=== PATIENT | male | born 1970 | race Caucasian/White ===

== ENCOUNTER 2018-11-18 09:50 | Emergency (ER) | payer OTHER, SELFPAY ==
[2018-11-18 09:58] VITALS: BP 130/69; PULSE 70; RESP 16; TEMP 36.6; O2SAT 98
--- NOTE | 2018-11-18 10:01 | ED_ITS ---
HPI - General Adult General Chief complaint: Syncope Stated complaint: n/v/d@ home, near syncope @ market Time Seen by Provider: 11/18/18 09:51 Source: patient Mode of arrival: EMS Limitations: no limitations History of Present Illness HPI narrative: Patient is a 48-year-old male brought in by EMS after he had a presyncope/syncopal episode at the grocery store here in town. Patient states that about 0500 hours this morning he woke up having multiple episodes of diarrhea. Also having vomiting. He states that he went to the grocery store in order to buy some fluids and Pepto-Bismol. He states that when he was standing at the checkout counter he became very warm and lightheaded. He states that he could hear things that were going on. He has did state that he has vision went black. The next thing that he remembers he was lying on the ground and people were standing over him asking if he was okay. Denies any chest pain or shortness of breath or heart beating fast or headaches prior to falling. He s tates he has had 1 prior episode similar to this many years ago and was told that it was ?vasovagal ? Related Data Previous Rx's Medication Instructions Recorded albuterol sulfate [Ventolin HFA] 0 INH SEE INSTRUCTIONS #1 unit 06/22/16 sildenafil 100 mg tablet 100 mg PO ONCE #4 tab 07/19/17 ondansetron 4 mg PO Q6H PRN #10 tab 11/18/18 Allergies Allergy/AdvReac Type Severity Reaction Status Date / Time HAYFEVER Allergy Intermediate VERIFIED Uncoded 05/18/17 12:08 Review of Systems Constitutional Constitutional: Reports fatigue, Denies fever(s) and Denies headache(s) ENT Ears, Nose, Mouth, and Throat: Reports dizziness, Denies headache(s) and Reports disequilibrium Cardiovascular Cardiovascular: Denies chest pain, Reports syncope and Denies dyspnea Respiratory Respiratory: Denies dyspnea Gastrointestinal Gastrointestinal: Reports abdominal pain, Reports diarrhea, Reports nausea and R eports vomiting Genitourinary Genitourinary: Denies dysuria Musculoskeletal Musculoskeletal: Denies myalgias and Denies arthralgias Integumentary/Breasts Skin/Breast: Denies lesions and Denies rash Neurologic Neurologic: Reports confusion, Reports dizziness, Reports syncope, Denies headache(s) and Reports disequilibrium Psychiatric Psychiatric: Reports confusion Endocrine Endocrine: Reports fatigue Hematologic/Lymphatic Hematologic/Lymphatic: Denies easy bleeding and Denies easy bruising Patient History Medical/Surgical History Medical History (Updated 11/18/18 @ 12:15 by Tano Delvalle DO) Patient denies medical problems (Acute) Social History Smoking Status: Current some day smoker Family/Social History Social History Smoking Status: Current some day smoker Exam Initial Vital Signs Initial Vital Signs: Vital Signs Temperature 97.8 F 11/18/18 09:58 Pulse Rate 70 11/18/18 09:58 Respiratory Rate 16 11/18/18 09:58 Blood Pressure 130/69 11/18/18 09:58 Pulse Oximetry 98 11/18/18 09:58 Const General: cooperative and comfortable Orientation: alert and awake HENMT Head: normal to inspection and normocephalic Resp Effort & Inspection: normal respiratory effort Auscultation: clear to auscultation bilaterally Cardio Rate: regular rate Rhythm: regular rhythm Skin Lesions: no lesions Rashes: no rashes Neuro General: alert, awake and oriented x3 Cranial Nerves: CN's II-XI intact bilaterally Cognition: normal cognition Speech: speech normal Motor: muscle tone normal throughout Sensory Exam: no sensory deficits noted Extrem General: normal to inspection and capillary refill normal Psych Appearance: grossly normal and well kempt Scores GCS Carmela coma scale eye opening: Spontaneous Carmela coma scale verbal response: Orientated Carmela coma scale motor response: [place]bey commands [place] coma scale total score: 15 Course Orders Ordered: ED Orders 11/18/18 09:54 EKG-12 Lead Stat 11/18/18 10:09 Complete Blood Count AUTO DIFF Stat Comprehensive Metabolic Panel Stat Lipase Stat Troponin I Stat Discontinued Medications Sodium Chloride (Normal Saline 0.9%) 1,000 mls @ 1,000 mls/hr IV BOLUS ONE Stop: 11/18/18 10:50 Last Infusion: 11/18/18 11:40 Dose: 0 mls/hr Documented by: Admin: 11/18/18 10:15 Dose: 1,000 mls/hr Documented by: AKILAH Vital Signs Vital signs: Vital Signs - 8 hr 11/18/18 09:58 11/18/18 10:16 11/18/18 11:30 Temperature 97.8 F 98.3 F Pulse Rate 70 69 73 Respiratory Rate 16 16 15 Blood Pressure 130/69 Blood Pressure [Left Arm] 113/82 108/78 Pulse Oximetry 98 98 97 11/18/18 12:09 Temperature Pulse Rate 76 Respiratory Rate 12 Blood Pressure Blood Pressure [Left Arm] 130/77 Pulse Oximetry 97 Medical Decision Making Lab Data Lab results reviewed: Yes I reviewed the patient's lab results. Result diagrams: 11/18/18 10:09 11/18/18 10:09 Labs: Lab Results 11/18/18 11/18/18 Range/Units 10: 10:09 WBC 11.8 H (4.5-11.0) X10^3/uL RBC 5.85 (4.5-5.9) X10^6/uL Hgb 17.9 H (13.5-17.5) g/dL Hct 53.2 H (41-53) % MCV 90.9 (80-100) fL MCH 30.6 (26-34) PG MCHC 33.6 (30-36) % RDW 14.5 (11.6-14.8) % Plt Count 191 (150-400) X10^3/uL Neut % (Auto) 87.8 H (50-75) % Lymph % (Auto) 6.8 L (25-40) % [place] % (Auto) 4.1 (3-14) % Eos % (Auto) 1.2 L (2-4) % Baso % (Auto) 0.1 (0-2) % Neut # (Auto) 09549 H (6875-4432) /uL Lymph # (Auto) 800 L (9847-6301) /uL [place] # (Auto) 500 (0-900) /uL Eos # (Auto) 100 (0-450) /uL Baso # (Auto) 0 (0-100) /uL Sodium 144 (137-145) mmol/L Potassium 4.6 (3.4-5.1) mmol/L Chloride 107 (98-107) mmol/L Carbon Dioxide 21 L (22-32) mmol/L BUN 16 (9-20) mg/dL Creatinine 1.00 (0.66-1.25) mg/dL Estimated GFR > 60.0 (>60) mL/min BUN/Creatinine Ratio 16.0 (6-22) Glucose 114 H (70-100) mg/dL Calcium 9.8 (8.4-10.2) mg/dL Total Bilirubin 1.2 (0.2-1.3) mg/dL AST 24 (17-59) IU/L ALT 28 (21-72) IU/L Alkaline Phosphatase 61 (38-126) U/L Troponin I < 0.012 (0.01-0.034) ng/mL Total Protein 7.8 (6.3-8.2) g/dL Albumin 5.0 (3.5-5.0) g/dL Globulin 2.8 (1.7-4.1) g/dL Albumin/Globulin Ratio 1.8 (1.0-2.8) Lipase 40 (23-300) U/L Point of Care Testing Glucose POC 122 Point of care testing: Point of Care Testing Glucose POC 122 ECG Data Attestation: I personally reviewed and interpreted this ECG as follows: Prior ECG tracings: not available for review Interpretation: Sinus rhythm Ventricular rate is 67 Normal axis Normal QRS Normal QTC No ST T wave changes EKG transmitted by EMS shows sinus rhythm Heart rate is 70 Peak T-waves MDM Narrative Medical decision making narrative: Labs unremarkable. I do suspect the patient's symptoms were vasovagal most likely related to dehydration secondary to his GI issues this morning. He has been able to tolerate oral intake. Ambulated around the ER without problems. Will send home with a prescription for Zofran. He was given return precautions and follow-up instructions. He expressed understanding and agreement with plan. Discharge Plan Departure Patient Disposition: Home Clinical Impression: Vasovagal syncope, Dehydration Diarrhea Qualifiers: Diarrhea type: unspecified type Qualified Code(s): R19.7 - Diarrhea, unspecified Instructions: DI for Syncope in Adults (Fainting), Diarrhea Activity Restrictions/Additional Instructions: Recommend that you increase your fluid intake. Drink small amounts of water over long periods of time. Eat a bland diet. Contact your primary provider for follow-up. Return to the emergency department for any new or worsening symptoms Prescriptions: New ondansetron 4 mg tablet,disintegrating 4 mg PO Q6H PRN (Reason: nausea and vomiting) Qty: 10 RF: 0 No Action albuterol sulfate [Ventolin HFA] 90 MCG/PUFF HFA aerosol inhaler 0 INH SEE INSTRUCTIONS Qty: 1 RF: 5 sildenafil 100 mg tablet 100 mg PO ONCE Qty: 4 RF: 3 Referrals: Len Castellanos MD [Primary Care Provider] -
[2018-11-18] MEDS: SODIUM CHLORIDE 0.9% 1,000 ML 1000 ML IV (10:15)
[2018-11-18 10:16] VITALS: BP 113/82; PULSE 69; RESP 16; TEMP 36.8; O2SAT 98
[2018-11-18 10:19] LABS: Add Manual Diff / Slide Review NO; Basophils Absolute Auto 0 /uL (0-100); Basophils Percent Auto 0.1 % (0-2); Eosinophils Absolute Auto 100 /uL (0-450); Eosinophils Percent Auto 1.2 % (2-4); Hematocrit 53.2 % (41-53); Hemoglobin 17.9 g/dL (13.5-17.5); Lymphocytes Absolute Auto 800 /uL (1100-4500); Lymphocytes Percent Auto 6.8 % (25-40); Mean Corpuscular HGB Conc 33.6 % (30-36); Mean Corpuscular Hemoglobin 30.6 PG (26-34); Mean Corpuscular Volume 90.9 fL (80-100); Monocytes Absolute Auto 500 /uL (0-900); Monocytes Percent Auto 4.1 % (3-14); Neutrophils Absolute Auto 10400 /uL (1500-7000); Neutrophils Percent Auto 87.8 % (50-75); Platelet Count 191 X10^3/uL (150-400); Red Blood Cell Count 5.85 X10^6/uL (4.5-5.9); Red Cell Distribution Width 14.5 % (11.6-14.8); White Blood Cell Count 11.8 X10^3/uL (4.5-11.0)
--- NOTE | 2018-11-18 10:20 | PC.NURSE ---
Pt arrived via EMS with reports of syncope while in grocery store. pt with NVD at home and was at store buying fluids and OTC medication when he collapsed and had syncopal episode at counter, witnessed by employees, reports LOC for few seconds and feeling warm and flush and with tunnel vision. vomited on self. EMS arrived with 18G RAC with fluids infusing. EKG obtained NSR 70's, BP 110s/systolic. appears pale and reports intermittent lightheaded and dizziness. lungs clear. attached to cardiac monitoring. labs drawn and sent and fluids infusing per order. Dr Delvalle in to evaluate.
[2018-11-18 10:30] LABS: Albumin Globulin Ratio 1.8 (1.0-2.8); Alkaline Phosphatase 61 U/L (38-126); Aspartate Aminotransferase 24 IU/L (17-59); Bilirubin Total 1.2 mg/dL (0.2-1.3); Blood Urea Nitrogen 16 mg/dL (9-20); Calcium 9.8 mg/dL (8.4-10.2); Carbon Dioxide 21 mmol/L (22-32); Estimated Glomerular Filt Rate > 60.0 mL/min (>60); Globulin 2.8 g/dL (1.7-4.1); Glucose 114 mg/dL (70-100); HEMOLYSIS 25 (0-50); Total Protein 7.8 g/dL (6.3-8.2)
[2018-11-18 10:35] LABS: Alanine Aminotransferase 28 IU/L (21-72); Chloride 107 mmol/L (98-107); Lipase 40 U/L (23-300); Potassium 4.6 mmol/L (3.4-5.1); Sodium 144 mmol/L (137-145)
[2018-11-18 10:42] LABS: Troponin I < 0.012 ng/mL (0.01-0.034)
[2018-11-18 11:30] VITALS: BP 108/78; PULSE 73; RESP 15; O2SAT 97
--- NOTE | 2018-11-18 11:40 | PC.NURSE ---
Pt drowsy, fluids infused. pt reports feeling better. to PO challenge and plan to DC.
[2018-11-18 12:09] VITALS: BP 130/77; PULSE 76; RESP 12; O2SAT 97
== END 2018-11-18 12:25 | disposition home or self-care (01) ==
PROVIDERS: Emergency Provider Emergency Medicine; PCP Family Medicine
DX: R55 Syncope and collapse (principal); E86.0 Dehydration; R19.7 Diarrhea, unspecified
CPT/HCPCS: 36415; 80053; 83690; 84484; 85025; 93005; 96360; 99283; 99284

== ENCOUNTER 2018-11-21 06:32 | Emergency (ER) | payer OTHER, SELFPAY ==
--- NOTE | 2018-11-21 06:45 | DI.RAD.S_ITS ---
PROCEDURE: XR RIBS LT MIN 3V W CXR1V INDICATIONS: pain, fall 4 days ago TECHNIQUE: 3 views of the left ribs were acquired, along with a single view chest. COMPARISON: None. FINDINGS: Surgical changes and devices: None. Bones and chest wall: No fractures or dislocations. No suspicious bony lesions. Overlying soft tissues appear unremarkable. Lungs and pleura: No pleural effusions or pneumothorax. Lungs appear clear. Mediastinum: Mediastinal contours appear normal. Heart size is normal. IMPRESSION: No visualized acute fracture or dislocation. However, if clinical concern and/or pain persist, short interval imaging followup in 7-10 days is recommended, as occult injury cannot be definitively excluded. Dictated by: Justyna Simpson M.D. on 11/21/2018 at 8:21 Approved by: Justyna Simpson M.D. on 11/21/2018 at 8:22
[2018-11-21 06:46] VITALS: BP 133/92; PULSE 76; RESP 14; TEMP 36.9; O2SAT 99; BMI 23.7
--- NOTE | 2018-11-21 06:55 | ED.BACK ---
HPI - Back Pain/Injury General Chief Complaint: Back Pain/Injury Stated Complaint: severe left rib pain/fell x4days ago Time Seen by Provider: 11/21/18 06:45 Source: patient Mode of arrival: Ambulatory Limitations: no limitations History of Present Illness HPI Narrative: Patient is a 48-year-old male who I evaluated in the department several days ago after he had what I diagnosed as a vasovagal episode at a local grocery store. This was after he was having several episodes of diarrhea. Patient did admit that during his initial episode here he was not complaining of left-sided rib/back pain however since that event he has had pain on this side. He stated that it has worsened over the past couple days. Stated that last evening/this morning he rolled over in bed and heard/felt a loud pop and since then has had increasing pain on his left rib cage in the back. No problems breathing however it does hurt in the spot to take a deep breath. Related Data Previous Rx's Medication Instructions Recorded albuterol sulfate [Ventolin HFA] 0 INH SEE INSTRUCTIONS #1 unit 06/22/16 sildenafil 100 mg tablet 100 mg PO ONCE #4 tab 07/19/17 ondansetron 4 mg PO Q6H PRN #10 tab 11/18/18 Allergies Allergy/AdvReac Type Severity Reaction Status Date / Time HAYFEVER Allergy Intermediate VERIFIED Uncoded 05/18/17 12:08 Review of Systems Constitutional Constitutional: Denies fever(s) Cardiovascular Cardiovascular: Denies chest pain and Denies dyspnea on exertion Comments: Pain on inspiration Respiratory Respiratory: Denies cough, Reports pain on inspiration and Denies dyspnea on exertion Gastrointestinal Gastrointestinal: Denies abdominal pain, Denies nausea and Denies vomiting Musculoskeletal Musculoskeletal: Denies myalgias and Denies arthralgias Integumentary/Breasts Skin/Breast: Denies rash Neurologic Neurologic: Denies behavioral changes Psychiatric Psychiatric: Denies behavioral changes Hematologic/Lymphatic Hematologic/Lymphatic: Denies easy bleeding and Denies easy bruising Patient History Medical History Medical History Patient denies medical problems (Acute) Social History Social History Smoking Status: Current some day smoker tobacco type: cigarettes alcohol intake frequency: 0-2 drinks per day Substance Use Type: does not use Exam Initial Vital Signs Initial Vital Signs: Vital Signs Temperature 98.4 F 11/21/18 06:46 Pulse Rate 76 11/21/18 06:46 Respiratory Rate 14 11/21/18 06:46 Blood Pressure 133/92 H 11/21/18 06:46 Pulse Oximetry 99 11/21/18 06:46 Const General: cooperative, well developed and well groomed Orientation: alert, awake and oriented x3 Chest Chest: No crepitus and No tenderness Resp Effort & Inspection: normal respiratory effort Auscultation: clear to auscultation bilaterally Cardio Rate: regular rate Rhythm: regular rhythm Back/Spine/Pelvis Other: Patient with tenderness to palpation posteriorly paraspinal on the left along approximately rib 7/8. No crepitus felt. Skin Lesions: no lesions Rashes: no rashes Neuro General: alert and awake Cognition: normal cognition Speech: speech normal Extrem General: normal to inspection and capillary refill normal Psych Appearance: grossly normal and well kempt Course Orders Ordered: ED Orders 11/21/18 06:45 XR ribs LT min 3V w CXR1V Stat Discontinued Medications Ketorolac Tromethamine (Toradol) 30 mg IM NOW ONE Stop: 11/21/18 06:52 Last Admin: 11/21/18 07:19 Dose: 30 mg Documented by: AKILAH Vital Signs Vital signs: Vital Signs - 8 hr 11/21/18 06:46 Temperature 98.4 F Pulse Rate 76 Respiratory Rate 14 Blood Pressure 133/92 H Pulse Oximetry 99 MDM - Back Pain/Injury Imaging Data Rib x-ray: Attestation: I personally reviewed and interpreted this imaging study as follows: My impression: No fractures, no dislocations, no acute pathology in the lungs [facility] Narrative Medical decision making narrative: Patient is not in any respiratory distress. His lungs are clear. He does have reproducible tenderness to palpation along the posterior lower ribs. There is no crepitus along this area. There is no changes in the skin. I do suspect that this is either a nondisplaced rib fracture verses a bruise rib verses a intercostal muscle spasm. I did discuss this with the patient. We did discuss the importance of taking deep breaths. We did discuss the importance of pain control. He states he will stick with ibuprofen. We will hold on further workup for now. Patient was given return precautions and follow-up instructions. He expressed understanding and agreement with plan. Discharge Plan Departure Patient Disposition: Home Clinical Impression: Rib injury Instructions: DI for Rib Contusion Activity Restrictions/Additional Instructions: There was no defined fracture on the x-ray today. Your lungs were also unremarkable on the x-ray. Remember that it is important that you continue to take deep breaths. Take ibuprofen/Tylenol for discomfort. Return to the emergency department for any new or worsening symptoms Prescriptions: No Action albuterol sulfate [Ventolin HFA] 90 MCG/PUFF HFA aerosol inhaler 0 INH SEE INSTRUCTIONS Qty: 1 RF: 5 sildenafil 100 mg tablet 100 mg PO ONCE Qty: 4 RF: 3 ondansetron 4 mg tablet,disintegrating 4 mg PO Q6H PRN (Reason: nausea and vomiting) Qty: 10 RF: 0 Referrals: Len Castellanos MD [Primary Care Provider] -
[2018-11-21] MEDS: KETOROLAC 60 MG/2 ML VIAL 30 MG IM (07:19)
[2018-11-21 07:56] VITALS: BP 128/78; PULSE 77; RESP 16; O2SAT 97
== END 2018-11-21 07:57 | disposition home or self-care (01) ==
PROVIDERS: Emergency Provider Emergency Medicine; PCP Family Medicine
DX: R07.81 Pleurodynia (principal)
CPT/HCPCS: 71101; 96372; 99282; 99283; J1885

== ENCOUNTER → 2019-01-12 07:18 | Outpatient (CLI) | payer OTHER, SELFPAY ==
[2019-01-12 08:14] LABS: Add Manual Diff / Slide Review NO; Basophils Absolute Auto 0 /uL (0-100); Basophils Percent Auto 0.4 % (0-2); Eosinophils Absolute Auto 100 /uL (0-450); Eosinophils Percent Auto 2.5 % (2-4); Hematocrit 46.1 % (41-53); Hemoglobin 15.7 g/dL (13.5-17.5); Lymphocytes Absolute Auto 1900 /uL (1100-4500); Lymphocytes Percent Auto 31.6 % (25-40); Mean Corpuscular HGB Conc 34.1 % (30-36); Mean Corpuscular Hemoglobin 30.6 PG (26-34); Mean Corpuscular Volume 89.9 fL (80-100); Monocytes Absolute Auto 500 /uL (0-900); Monocytes Percent Auto 7.7 % (3-14); Neutrophils Absolute Auto 3400 /uL (1500-7000); Neutrophils Percent Auto 57.8 % (50-75); Platelet Count 193 X10^3/uL (150-400); Red Blood Cell Count 5.13 X10^6/uL (4.5-5.9); Red Cell Distribution Width 14.2 % (11.6-14.8); White Blood Cell Count 5.9 X10^3/uL (4.5-11.0)
[2019-01-12 09:21] LABS: Alanine Aminotransferase 29 IU/L (<50); Albumin 4.4 g/dL (3.5-5.0); Albumin Globulin Ratio 1.8 (1.0-2.8); Alkaline Phosphatase 60 U/L (38-126); Aspartate Aminotransferase 21 IU/L (17-59); Bilirubin Total 0.7 mg/dL (0.2-1.3); Blood Urea Nitrogen 20 mg/dL (9-20); Calcium 9.5 mg/dL (8.4-10.2); Carbon Dioxide 28 mmol/L (22-32); Chloride 104 mmol/L (98-107); Cholesterol 151 mg/dL (140-199); Estimated Glomerular Filt Rate > 60.0 mL/min (>60); Globulin 2.4 g/dL (1.7-4.1); Glucose 96 mg/dL (70-100); HDL Cholesterol 37 mg/dL (40-60); HEMOLYSIS < 15 (0-50); LDL Cholesterol Calculated 89 mg/dL (<100); Potassium 4.3 mmol/L (3.4-5.1); Sodium 141 mmol/L (137-145); Total Protein 6.8 g/dL (6.3-8.2); Triglycerides 123 mg/dL (35-150)
== END ==
PROVIDERS: PCP Family Medicine; Visit Provider Family Medicine
DX: Z00.00 Encounter for general adult medical examination without abnormal findings (principal); Z13.220 Encounter for screening for lipoid disorders; Z13.6 Encounter for screening for cardiovascular disorders; Z12.5 Encounter for screening for malignant neoplasm of prostate
CPT/HCPCS: 36415; 80053; 80061; 85025; G0103

== ENCOUNTER → 2020-09-02 07:03 | Outpatient (CLI) | payer OTHER, SELFPAY ==
[2020-09-02 07:53] LABS: Add Manual Diff / Slide Review NO; Basophils Absolute Auto 0 /uL (0-100); Basophils Percent Auto 0.5 % (0-2); Eosinophils Absolute Auto 100 /uL (0-450); Eosinophils Percent Auto 2.4 % (2-4); Hematocrit 46.4 % (41-53); Hemoglobin 15.1 g/dL (13.5-17.5); Lymphocytes Absolute Auto 1900 /uL (1100-4500); Lymphocytes Percent Auto 30.3 % (25-40); Mean Corpuscular HGB Conc 32.6 % (30-36); Mean Corpuscular Hemoglobin 29.6 PG (26-34); Mean Corpuscular Volume 90.8 fL (80-100); Monocytes Absolute Auto 500 /uL (0-900); Monocytes Percent Auto 7.9 % (3-14); Neutrophils Absolute Auto 3600 /uL (1500-7000); Neutrophils Percent Auto 58.9 % (50-75); Platelet Count 201 X10^3/uL (150-400); Red Cell Distribution Width 15.3 % (11.6-14.8); White Blood Cell Count 6.1 X10^3/uL (4.5-11.0)
[2020-09-02 08:19] LABS: Alanine Aminotransferase 22 IU/L (<50); Albumin Globulin Ratio 1.6 (1.0-2.8); Alkaline Phosphatase 49 U/L (38-126); Aspartate Aminotransferase 19 IU/L (17-59); BUN Creatinine Ratio 19.1 (6-22); Bilirubin Total 0.6 mg/dL (0.2-1.3); Blood Urea Nitrogen 17 mg/dL (9-20); Calcium 8.9 mg/dL (8.4-10.2); Carbon Dioxide 27 mmol/L (22-32); Chloride 107 mmol/L (98-107); Cholesterol 143 mg/dL (140-199); Estimated Glomerular Filt Rate > 60.0 mL/min (>60); Globulin 2.5 g/dL (1.7-4.1); Glucose 99 mg/dL (70-100); HDL Cholesterol 41 mg/dL (40-60); HEMOLYSIS 16 (0-50); LDL Cholesterol Calculated 79 mg/dL (<100); Potassium 4.4 mmol/L (3.4-5.1); Sodium 140 mmol/L (137-145); Total Protein 6.5 g/dL (6.3-8.2); Triglycerides 113 mg/dL (35-150)
== END ==
PROVIDERS: PCP Internal Medicine; Referring Provider Internal Medicine; Visit Provider Internal Medicine
DX: F32.9 Major depressive disorder, single episode, unspecified (principal); G47.30 Sleep apnea, unspecified; J45.909 Unspecified asthma, uncomplicated; Z13.220 Encounter for screening for lipoid disorders
CPT/HCPCS: 36415; 80053; 80061; 85025

== ENCOUNTER 2022-08-11 17:07 | Emergency (ER) | payer OTHER, SELFPAY ==
[2022-08-11 17:15] VITALS: BP 144/81; PULSE 75; RESP 16; TEMP 36.7; O2SAT 97; BMI 24.3
[2022-08-11 18:49] VITALS: PULSE 64; O2SAT 97
[2022-08-11 18:51] VITALS: BP 126/84; PULSE 65; O2SAT 97
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
[2022-08-11] MEDS: PROPARACAINE 0.5% OPHTH SOL 1 DROPS EYE-BOTH (19:52)
[2022-08-11] MEDS: KETOROLAC 30 MG/ML VIAL 15 MG IV (19:52)
[2022-08-11] MEDS: FLUORESCEIN 1 MG STRIP EYE-BOTH (19:53)
[2022-08-11] MEDS: AMPICILLIN/SULBACTAM 3 GM 3 GM in SODIUM CHLORIDE 0.9% 100 ML IV (19:55)
[2022-08-11 20:01] LABS: Add Manual Diff / Slide Review NO; Basophils Absolute Auto 0 /uL (0-100); Basophils Percent Auto 0.5 % (0-2); Eosinophils Absolute Auto 200 /uL (0-450); Eosinophils Percent Auto 2.1 % (2-4); Hematocrit 42.9 % (41-53); Hemoglobin 14.7 g/dL (13.5-17.5); Lymphocytes Absolute Auto 2000 /uL (1100-4500); Lymphocytes Percent Auto 25.6 % (25-40); Mean Corpuscular HGB Conc 34.2 % (30-36); Mean Corpuscular Hemoglobin 30.6 PG (26-34); Mean Corpuscular Volume 89.4 fL (80-100); Monocytes Absolute Auto 600 /uL (0-900); Neutrophils Absolute Auto 4900 /uL (1500-7000); Neutrophils Percent Auto 63.8 % (50-75); Platelet Count 178 X10^3/uL (150-400); Red Cell Distribution Width 15.3 % (11.6-14.8); White Blood Cell Count 7.6 X10^3/uL (4.5-11.0)
[2022-08-11 20:03] LABS: Lactate (Lactic Acid) 0.7 mmol/L (0.7-2.1)
[2022-08-11 20:04] LABS: Alanine Aminotransferase 26 IU/L (<50); Albumin Globulin Ratio 1.3 (1.0-2.8); Alkaline Phosphatase 69 U/L (38-126); Aspartate Aminotransferase 23 IU/L (17-59); BUN Creatinine Ratio 15.3 (6-22); Bilirubin Total 0.6 mg/dL (0.2-1.3); Blood Urea Nitrogen 15 mg/dL (9-20); Calcium 8.6 mg/dL (8.4-10.2); Carbon Dioxide 26 mmol/L (22-32); Chloride 104 mmol/L (98-107); Estimated Glomerular Filt Rate > 60 mL/min (>60); Glucose 85 mg/dL (70-100); HEMOLYSIS 15 (0-50); Potassium 4.1 mmol/L (3.4-5.1); Sodium 137 mmol/L (137-145)
[2022-08-11 20:21] LABS: Procalcitonin 0.06 ng/mL (<0.5)
[2022-08-11] MEDS: ERYTHROMYCIN OPHTH 1 GM OINT 1 APPLIC EYE-BOTH (21:59)
[2022-08-11] MEDS: AMOXICILLIN/CLAV 875/125 MG 1 TAB PO (21:59)
[2022-08-11 22:08] VITALS: BP 126/74; PULSE 78; RESP 16; TEMP 36.6; O2SAT 98
== END 2022-08-11 22:09 | disposition home or self-care (01) ==
PROVIDERS: Emergency Provider Emergency Medicine; PCP Internal Medicine
DX: L03.213 Periorbital cellulitis (principal); H04.301 Unspecified dacryocystitis of right lacrimal passage
CPT/HCPCS: 36415; 80053; 83605; 84145; 85025; 96365; 96375; 99284; J0295; J1885

== ENCOUNTER → 2023-07-16 | Outpatient (CLI) | payer OTHER, SELFPAY ==
--- NOTE | 2023-07-16 | DI.RAD.S_ITS ---
PROCEDURE: XR LUMBAR SPINE 2-3V INDICATIONS: low back pain TECHNIQUE: 3 views of the lumbar spine were acquired. COMPARISON: None. FINDINGS: Bones: 5 [id number] vertebrae are present. There is normal bony alignment. No vertebral body compression fractures. No suspicious bony lesions. Moderate disc space narrowing can be seen at L4-L5 and L5-S1. The disc heights otherwise appear well-preserved. Lower lumbar spine facet arthropathy is seen. Soft tissues: Overlying bowel gas pattern is normal. No suspicious soft tissue calcifications. IMPRESSION: Lower lumbar spine degenerative changes are seen by plain film. If it would be helpful for clinical management decision making, please consider a dedicated, scheduled lumbar spine MRI for further evaluation (assuming that there is no contraindication). Dictated by: Luís Holland M.D. on 07/16/2023 at 15:05 Approved by: Luís Holland M.D. on 07/16/2023 at 15:06
== END ==
PROVIDERS: PCP Internal Medicine; Referring Provider Nurse Practitioner Family; Visit Provider Nurse Practitioner Family
DX: M47.816 Spondylosis without myelopathy or radiculopathy, lumbar region (principal); M54.50 Low back pain, unspecified
CPT/HCPCS: 72100

== ENCOUNTER 2024-01-06 21:26 | Emergency (ER) | payer OTHER, SELFPAY ==
[2024-01-06 21:31] VITALS: BP 146/80; PULSE 66; RESP 16; TEMP 36.6; O2SAT 99; BMI 24.3
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
[2024-01-06] MEDS: KETOROLAC 30 MG/ML VIAL IM (22:24)
[2024-01-06 23:23] VITALS: BP 140/87; PULSE 60; RESP 16; O2SAT 98
== END 2024-01-06 23:25 | disposition home or self-care (01) ==
PROVIDERS: Emergency Provider Emergency Medicine; PCP Internal Medicine
DX: S22.41XA Multiple fractures of ribs, right side, initial encounter for closed fracture (principal); R07.9 Chest pain, unspecified; W10.9XXA Fall (on) (from) unspecified stairs and steps, initial encounter
CPT/HCPCS: 71250; 96372; 99284; J1885